=== PATIENT | female | born 1985 | race Caucasian/White ===

== ENCOUNTER 2017-01-30 12:52 | Emergency (ER) | payer OTHER ==
[2017-01-30] MEDS ORDERED: diphenhydrAMINE 50 MG/ML VIAL ONE (13:14)
[2017-01-30] MEDS ORDERED: Metoclopramide HCl 10 MG/2 ML VIAL ONE (13:14)
[2017-01-30 13:21] LABS: #Basophils 0.1 thou/uL (0.0-0.2); #Eosinphils 0.1 thou/uL (0.0-0.7); #Monocytes 0.5 thou/uL (0.11-0.59); %Basophils 0.9 % (0.0-1.0); %Eosinophils 0.8 % (0.0-10.0); %Lymphocytes 18.7 % (21.0-51.0); %Monocytes 4.7 % (0.0-10.0); Mean Platelet Volume 7.6 fL (7.4-10.4); Red Blood Cell (RBC) Count 4.32 mill/uL (4.20-5.40); White Blood Cell (WBC) Count 10.7 thou/uL (4.8-10.8)
[2017-01-30 13:39] LABS: ALT (SGPT) 16 U/L (8-55); AST (SGOT) 16 U/L (5-34); Alkaline Phosphatase 65 U/L (40-150); Anion Gap 14 mmol/L (10-20); BUN (Urea Nitrogen) 6 mg/dL (7.0-18.7); Bilirubin, Total 0.6 mg/dL (0.2-1.2); Calc. Creatinine Clearance 0 mL/min (70-130); Carbon Dioxide 22 mmol/L (22-29); Chloride 101 mmol/L (98-107); Estimated GFR-MDRD Greater than 90; Globulin 3.9 g/dL (2.4-3.5); Protein, Total 7.8 g/dL (6.0-8.3)
[2017-01-30 15:03] LABS: Bilirubin Negative (Negative); Blood, Urine Negative (Negative); Glucose, Urine (Dipstick) Negative (Negative); Ketone, Urine 15 mg/dL (Negative); Nitrite Negative (Negative); Protein, Urine (Dipstick) Negative (Neg-Trace)
== END 2017-01-30 15:05 | disposition home or self-care (01) ==
LOC: ERS 12:52
DX: O99.351 Diseases of the nervous system complicating pregnancy, first trimester (principal); G43.909 Migraine, unspecified, not intractable, without status migrainosus; O99.341 Other mental disorders complicating pregnancy, first trimester; F41.9 Anxiety disorder, unspecified; Z3A.13 13 weeks gestation of pregnancy
CPT/HCPCS: 80053; 81003; 85025; 96361; 96374; 96375; J1200; J2765

== ENCOUNTER 2017-06-24 17:42 | Day surgery (SDC) | payer BC ==
[2017-06-24 18:37] VITALS: BMI 38.6
--- NOTE | 2017-06-25 07:22 | PRG ---
DATE OF SERVICE: 06/24/2017 OB ER ENCOUNTER PRIMARY WEATHER STRIP INSTALLER: Dr. Madonna Ferrara. CHIEF COMPLAINT: Decreased movement. HISTORY OF PRESENT ILLNESS: The patient is a 31-year-old G3, P1 female with an intrauterine pregnanc y at 33 weeks and 5 days who presented to Labor and Delivery with concerns of decreased movemen t x1 day. The patient denies any recent illness, fever, fall, headache, chest pain, shortness of jonathan ath, nausea, vomiting, diarrhea, constipation. She denies vaginal bleeding, leakage of fluid, urinar y problems. The patient reports she recently was diagnosed with a vaginal infection and has been usi ng Monistat recently. PAST MEDICAL HISTORY: Negative. PAST SURGICAL HISTORY: Noncontributory. ALLERGIES: No known drug allergies. MEDICATIONS: vitamins. OB LABS: Unavailable at the time of dictation. PHYSICAL EXAMINATION: VITAL SIGNS: Blood pressure 136/79, heart rate 75, satting 99% on room air, respiratory rate of 20, temperature 98.6. GENERAL: She appears to be in no acute distress. She is alert and oriented, cooperative and pleasan t to interact with. HEAD: Normocephalic, atraumatic. LUNGS: Clear to auscultation bilaterally. HEART: Regular rate and rhythm. ABDOMEN: Soft, gravid, nontender to palpation. EXTREMITIES: Nontender with bilateral edema in the lower extremities. The patient reports it resolv es at night after work. : Exam has been deferred. heart tracing performed for decreased movement demonstrates a baseline in the 130s with m oderate long-term variability, positive accelerations, no decelerations. Patient does show contracti ons on the monitor, but not felt by her about every 4-5 minutes with irritability in between. ASSESSMENT AND PLAN: The patient is a 31-year-old female with an intrauterine at 33 weeks and 5 days, followed by Dr. Ferrara who presents for decreased movement. The patient demo nstrates a fetus with a reactive NST and reassuring heart tracing. The patient does show contr actions on the monitor; however, the patient does not feel them. The patient recently was diagnosed with a vaginal infection and was given instructions to take Monistat over the counter which she recen tly has begun. Patient has been given reassurance and has been discharged home with labor pr ecautions.
== END 2017-06-24 20:00 | disposition home or self-care (01) ==
LOC: L&D/OP 17:42
PROVIDERS: ATTEND Obstetrics & Gynecology
DX: O36.8130 Decreased fetal movements, third trimester, not applicable or unspecified (principal); Z3A.33 33 weeks gestation of pregnancy; Z79.899 Other long term (current) drug therapy
CPT/HCPCS: 99282

== ENCOUNTER 2017-07-09 08:37 | Inpatient (IN) | payer BC ==
[2017-07-09] MEDS ORDERED: Calcium Gluc 4.6 MEQ/10 ML (100 MG/ML) SLOW IVP PRN (09:20)
[2017-07-09] MEDS ORDERED: Promethazine HCl 25 MG/ML VIAL IM PRN ×2 (09:20→18:40)
--- NOTE | 2017-07-09 09:27 | PDOC.LDHP ---
Labor and Delivery H&P Chief complaint: other (Bilateral lower leg swelling) HPI: This patient presents to L&D as a 31 yo Sab1 at 35 weeks and 5 days with a complaint of lower leg swelling (both legs). She denies HAs or vision changes or RUQ pain. Good FM. She does not have a HX of PIH or CHTN. She sees Dr Jimenez in the office. Review of Systems: complete ROS performed and negative as per HPI Family HX noncontributory Current gestational age (weeks): 35 (5 days) Due date: 08/07/17 Dating criteria: last menstrual period Grav: 3 Para: 1 OB History Details: X 1 in past Current complications: none Abnormal US findings: No Current medications: pre- vitamins Previous surgical history: none Allergies/Adverse Reactions: Allergies Allergy/AdvReac Type Severity Reaction Status Date / Time No Known Allergies Allergy Unverified 06/24/17 18:28 Social history: none - Physical Exam Abnormal vital signs: BP 179/80s, 180/90s General: NAD Heart: RRR Lungs: CTAB Abdomen: gravid FHT: category 1 [place] contractions every: uterine irritability - Assessment L&D Assessment: medically indicated induction 35 weeks severe BP elevation (severe preeclampsia based on BP criteria) - Plan Plan: admit to L&D, GBS antibiotic prophylaxis, informed consent obtained, other (Plan: 1. Serial BPs 2. Severe Precelampsia based on BPs 3. Recommend induction as EGA greater than 34 weeks with severe pressures 4. GBS prophylaxis as EGA under 37 weeks 5. MgSo4 in labor 6. CX check after patient back from restroom 7. Antihypertensives prn for BPs >160/110 8. Sono for EFW 9. Dr Rivera and I have reviewed the patient's case.)
[2017-07-09] MEDS ORDERED: Magnesium Sulfate 20 GM/WATER 500 ML BAG IVPB SCH (09:30)
[2017-07-09] MEDS: Lactated Ringer's 1,000 ML IV SCH ×2 (09:30→18:25)
[2017-07-09] MEDS: Betamet Acet/Betamet Na Ph 30 MG/5 ML VIAL IM SCH ×2 (09:30→21:50)
[2017-07-09] MEDS ORDERED: HYDROcodone/Acetaminophen 5/325 mg Tablet PO PRN ×2 (09:31)
[2017-07-09] MEDS ORDERED: Betamet Acet/Betamet Na Ph 30 MG/5 ML VIAL ONE (09:31)
[2017-07-09] MEDS ORDERED: Ibuprofen 800 MG TAB PO PRN (09:31)
[2017-07-09] MEDS ORDERED: Penicillin G Potassium 5 MILL.UNITS in Sodium Chloride 0.9% 100 ML IVPB SCH (09:45)
--- NOTE | 2017-07-09 09:50 | PDOC.EVN ---
Event Note - Event Note Event Note: Sono being done now at bedside by tech.
--- NOTE | 2017-07-09 09:56 | PDOC.EVN ---
Event Note - Event Note Event Note: Sono= cephalic, EFW 3146 grams, PEDRO LUIS 7, anterior placenta. BPs still 180/90s, will order nifedipine.
[2017-07-09] MEDS ORDERED: NIFEdipine 10 MG CAP PO SCH (10:15)
[2017-07-09 10:19] LABS: #Basophils 0.1 thou/uL (0.0-0.2); #Eosinphils 0.1 thou/uL (0.0-0.7); #Lymphocytes 2.2 thou/uL (1.20-3.40); #Monocytes 1.1 thou/uL (0.11-0.59); %Basophils 0.9 % (0.0-1.0); %Eosinophils 0.9 % (0.0-10.0); %Lymphocytes 18.8 % (21.0-51.0); %Monocytes 9.8 % (0.0-10.0); %Neutrophils 69.6 % (42.0-75.0); Hemoglobin 11.4 g/dL (12.0-16.0); Mean Corpuscular HGB CONC 35.2 g/dL (32.0-36.0); Mean Corpuscular Hemoglobin 31.9 pg (27.0-31.0); Mean Corpuscular Volume 90.6 fl (81.0-99.0); Mean Platelet Volume 11.4 fL (7.4-10.4); Platelet Count 168 thou/uL (130-400); RBC Distribution Width 12.7 % (11.5-14.5); Red Blood Cell (RBC) Count 3.59 mill/uL (4.20-5.40); White Blood Cell (WBC) Count 11.4 thou/uL (4.8-10.8)
[2017-07-09] MEDS ORDERED: Penicillin G Potassium 5 MILL.UNITS VIAL ONE (10:22)
--- NOTE | 2017-07-09 10:29 | PDOC.EVN ---
Event Note - Event Note Event Note: CX was /-1, cytotec ordered PV
[2017-07-09] MEDS: Misoprostol 100 MCG TAB VAG SCH ×3 (10:41→22:50)
[2017-07-09 10:42] LABS: ALT (SGPT) 25 U/L (8-55); AST (SGOT) 25 U/L (5-34); Alkaline Phosphatase 166 U/L (40-150); Anion Gap 12 mmol/L (10-20); BUN (Urea Nitrogen) 8 mg/dL (7.0-18.7); Bilirubin, Total 0.3 mg/dL (0.2-1.2); Calc. Creatinine Clearance 0 mL/min (70-130); Calcium 8.9 mg/dL (7.8-10.44); Carbon Dioxide 23 mmol/L (22-29); Chloride 107 mmol/L (98-107); Estimated GFR-MDRD Greater than 90; Globulin 2.9 g/dL (2.4-3.5); Glucose 85 mg/dL (70-105); Potassium 3.9 mmol/L (3.5-5.1); Protein, Total 5.9 g/dL (6.0-8.3); Sodium 138 mmol/L (136-145)
[2017-07-09 10:59] LABS: Syphilis Antibody Nonreactive (Nonreactive); Syphilis Antibody Index 0.04 S/CO (<1.00 Non-Reactive)
[2017-07-09] MEDS: Magnesium Sulfate 20 gm/500 ml 20 GM/500 ML BAG IVPB SCH ×2 (11:03→18:32)
[2017-07-09 11:36] LABS: HBSAg Index 0.23 S/CO (0-0.99); HIV (1/2) Antibody/Antigen Non-Reactive (NonReactive); HIV 1/2 INDEX 0.07 S/CO (<1.00); Hep B Surf Ag Non-Reactive S/CO (NonReactive)
--- NOTE | 2017-07-09 11:52 | ULT ---
COMPLETE OB ULTRASOUND GREATER THAN 14 WEEKS: HISTORY: A 31-year-old female with a history of preeclampsia and labor. FINDINGS: A single viable intrauterine fetus is noted in cephalic presentation. The placenta appears to be ant erior. heart rate is 150 b.p.m. Cervical length is poorly seen but appears to be foreshortene d and approximately 1.6 cm. Amniotic fluid appears to be somewhat low with an PEDRO LUIS of 7.0 cm. ANATOMY: Limited anatomy demonstrates a 4-chamber heart, 3-vessel cord, stomach, bladder, kidney regions . Spine and extremities and portions of the brain were inaccurately seen. There is a small amount o f bilateral hydroceles in the fetus. BIOMETRY: BPD 9.0 cm-36 weeks 4 days Head circumference 33.1 cm-37 weeks 5 days Abdominal circumference 33.4 cm-37 weeks 2 days Femur length 7.3 cm-37 weeks 1 day IMPRESSION: A single viable intrauterine fetus at 37 weeks 1 day with an estimated date of confinement of 07/29/17 by ultrasound. Estimated weight is 3146 gm at 85th percentile. Incomplete anatomy eval uation. Somewhat low with amniotic fluid index of 7. Incomplete anatomy evaluation. POS: [facility]
[2017-07-09] MEDS ORDERED: Labetalol HCl 100 MG/20 ML VIAL SLOW IVP PRN (12:29)
--- NOTE | 2017-07-09 12:51 | PDOC.EVN ---
Event Note - Event Note Event Note: Lab check: CBC and CMP ok. UProtein/Cr ratio = 3
[2017-07-09] MEDS: LR 500 ML/Oxytocin 10 units 500 ML IV SCH (14:02)
[2017-07-09] MEDS: Penicillin G 2.5 MILL.units 2.5 MILL.UNITS in Premix Bag 1 BAG IVPB SCH ×3 (14:02→22:30)
[2017-07-09] MEDS ORDERED: DISCONTINUE ALL PREVIOUS NARCOTICS FS SCH (16:45)
[2017-07-09] MEDS: Bupivacaine 0.5% 20 ML, fentaNYL Citrate/PF 400 MCG in Sodium Chloride 0.9% 72 ML EPIDURAL SCH (18:21)
[2017-07-09] MEDS ORDERED: Acetaminophen 325 MG TAB PO PRN (18:40)
[2017-07-09] MEDS ORDERED: Lactated Ringer's 500 ML IV PRN (18:40)
[2017-07-09] MEDS ORDERED: ePHEDrine/0.9% NaCl/PF SYRINGE 50 mg/10 ml SLOW IVP PRN (18:40)
[2017-07-09] MEDS ORDERED: Ondansetron HCl/PF 4 MG/2 ML Vial IVP PRN (18:40)
[2017-07-09] MEDS ORDERED: Naloxone HCl 0.4 mg/ml Vial IVP PRN ×2 (18:40)
[2017-07-09] MEDS ORDERED: diphenhydrAMINE 50 MG/ML VIAL IVP PRN (18:40)
[2017-07-09] MEDS ORDERED: Eucerin (Mineral Oil/Petrolatum,White) 30 gm Jar TOP PRN (18:40)
[2017-07-09] MEDS ORDERED: Fentanyl 4mcg/Marcaine 0.1% Cassette 100 ML EPIDURAL SCH (18:45)
[2017-07-09] MEDS ORDERED: Communication Order-Pharmacy FS SCH (18:45)
--- NOTE | 2017-07-09 19:41 | PDOC.LDPN ---
Labor & Delivery Progress Note - Objective Vital signs reviewed and normal: yes Abnormal vital signs: BPs currently mild range General: NAD Uterine fundus: non tender Dilation: 3 Effacement: 50% Station: -2 FHT: category 1 (130s, mod hannah, +accels, no decels ) [place] contractions every: q1-4 min Other exam findings: 3+ pitting edema, Neg clonus, DTRs 2+ - Assessment (1) 35 weeks gestation of Code(s): Z3A.35 - 35 WEEKS GESTATION OF Current Visit: Yes Status : Acute (2) Severe pre-eclampsia Code(s): O14.10 - SEVERE PRE-ECLAMPSIA, UNSPECIFIED TRIMESTER Current Visit: Yes Status: Acute -: Continue magnesium for seizure PPX BMTZ course due to prematurity Continue pitocin for IOL Monitor BPs, currently improved with mag and 1 dose of procardia UOP good Check out given to Dr. Castaneda for remainder of care.
--- NOTE | 2017-07-09 19:55 | PDOC.EVN ---
Event Note - Event Note Event Note: Case D/W Dr Jimenez...I will assume care for overnight.
--- NOTE | 2017-07-09 21:50 | PDOC.EVN ---
Event Note - Event Note Event Note: L&D Check: cx 3cm, pitocin in use. Vitals seen. Strip reviewed.
--- NOTE | 2017-07-09 22:25 | PDOC.EVN ---
Event Note - Event Note Event Note: @2310: Will hold pit for 1 hour to prevent pit receptor downregulation. cervix still 3 cm
[2017-07-10] MEDS: Bupivacaine 0.5% 20 ML, fentaNYL Citrate/PF 400 MCG in Sodium Chloride 0.9% 72 ML EPIDURAL SCH ×2 (01:32→09:15)
[2017-07-10] MEDS: Penicillin G 2.5 MILL.units 2.5 MILL.UNITS in Premix Bag 1 BAG IVPB SCH ×4 (02:30→15:59)
[2017-07-10] MEDS: Misoprostol 100 MCG TAB VAG SCH ×4 (03:07→17:38)
[2017-07-10] MEDS: Magnesium Sulfate 20 gm/500 ml 20 GM/500 ML BAG IVPB SCH (04:08)
[2017-07-10] MEDS: LR 500 ML/Oxytocin 10 units 500 ML IV SCH (06:29)
--- NOTE | 2017-07-10 08:06 | PDOC.EVN ---
Event Note - Event Note Event Note: AROM Note: AROM at 0803 Patient resting with epidural. Cervix is 4/50/-1. AROM= copious clear fluid. FHTs Cat 1. IUPC placed. Report given to Dr Dailey.
[2017-07-10] MEDS ORDERED: LR / Pitocin 40 units/1000 ml 1,000 ML ONE (11:29)
[2017-07-10] MEDS ORDERED: Misoprostol 200 MCG TAB ONE (12:27)
[2017-07-10] MEDS ORDERED: Carboprost 250 MCG/ML AMP ONE ×2 (12:27→16:02)
[2017-07-10] MEDS ORDERED: Bicitra 30 ML UDCUP ONE (12:51)
[2017-07-10] MEDS: LR / Pitocin 40 units/1000 ml 1,000 ML IV SCH (14:10)
[2017-07-10 14:30] LABS: Actual Bicarbonate (HCO3a) 22.2 mEq/L (22-26); Actual Bicarbonate (HCO3v) 21 mEq/L (22-26); Analyzer IN Cardio OR; Base Excess -4.6 mEq/L (0 (+/- 2.5)); Base Excess (BEa) -4.5 mEq/L (0 (+/-) 2.5)
[2017-07-10] MEDS ORDERED: Ondansetron HCl/PF 4 MG/2 ML Vial IVP PRN (14:30)
[2017-07-10] MEDS ORDERED: Milk Of Magnesia 30 ML UDCUP PO PRN (14:30)
[2017-07-10] MEDS ORDERED: traMADol HCl 50 MG TAB PO PRN (14:30)
[2017-07-10] MEDS ORDERED: Benzocaine/Menthol 20-0.5% 60 ML CAN TOP PRN (14:30)
[2017-07-10] MEDS ORDERED: Bisacodyl 10 MG SUPP PR PRN (14:30)
[2017-07-10] MEDS ORDERED: Misoprostol 200 MCG TAB VAG SCH (14:30)
[2017-07-10] MEDS ORDERED: Diphenoxylate HCl/Atropine Tablet PO SCH (14:30)
--- NOTE | 2017-07-10 14:36 | PDOC.OPDEL ---
OB Operative/Delivery Note Delivery Dr/Surgeon: Madonna Ferrara DO Pre-Delivery Diagnosis: medically indicated induction (35 week IUP, severe pre- eclampsia) Procedure/Post Delivery Dx: spontaneous vaginal delivery Weeks gestation: 35 Anesthesia: epidural - Findings A Sex: male - 1 min: 4 - 5 min: 5 ( 9 @ 10 min ) - Additional Findings/Plan Placenta delivered: spontaneous Repaired Obstetrical Laceration: episiotomy (midline - 2nd degree) Estimated blood loss: 350 cc Compilations/Other Findings: in DARCY position Nuchal x1 Hemabate and cytotec given due to increased bleeding initially after delivery. Post delivery plan: routine recovery
[2017-07-10] MEDS ORDERED: Ondansetron HCl/PF 4 MG/2 ML Vial ONE (14:41)
[2017-07-10 15:51] LABS: Hemoglobin 12.4 g/dL (12.0-16.0); Mean Corpuscular HGB CONC 33.8 g/dL (32.0-36.0); Mean Corpuscular Volume 91.8 fl (81.0-99.0); Mean Platelet Volume 10.5 fL (7.4-10.4); Platelet Count 189 thou/uL (130-400); Red Blood Cell (RBC) Count 3.98 mill/uL (4.20-5.40); White Blood Cell (WBC) Count 23.3 thou/uL (4.8-10.8)
[2017-07-10 16:05] LABS: Band 4 % (5-11); Lymphocytes 4 % (21-51); MDiff Complete? YES; Monocytes 8 % (0-10); Neutrophil 82 % (42-75); PLT Morphology Comment Appears Adequate; Polychromasia SLIGHT = 2-3 cells (100X) (0-2/hpf); Reactive Lymphocytes 1 % (0-10)
[2017-07-10] MEDS: Lactated Ringer's 1,000 ML IV SCH ×2 (16:07→16:08)
[2017-07-10 16:12] LABS: ALT (SGPT) 50 U/L (8-55); AST (SGOT) 55 U/L (5-34); Albumin 2.9 g/dL (3.5-5.0); Alkaline Phosphatase 164 U/L (40-150); Anion Gap 16 mmol/L (10-20); BUN (Urea Nitrogen) 11 mg/dL (7.0-18.7); Bilirubin, Total 0.5 mg/dL (0.2-1.2); Calc. Creatinine Clearance 0 mL/min (70-130); Calcium 7.6 mg/dL (7.8-10.44); Carbon Dioxide 18 mmol/L (22-29); Chloride 103 mmol/L (98-107); Estimated GFR-MDRD 89; Globulin 2.9 g/dL (2.4-3.5); Glucose 109 mg/dL (70-105); Magnesium 5.8 mg/dL (1.6-2.6); Protein, Total 5.8 g/dL (6.0-8.3); Sodium 133 mmol/L (136-145)
[2017-07-11 07:09] LABS: Hemoglobin 10.6 g/dL (12.0-16.0); Mean Corpuscular HGB CONC 34.1 g/dL (32.0-36.0); Mean Corpuscular Hemoglobin 31.7 pg (27.0-31.0); Mean Corpuscular Volume 92.8 fl (81.0-99.0); Mean Platelet Volume 10.4 fL (7.4-10.4); Platelet Count 165 thou/uL (130-400); RBC Distribution Width 12.9 % (11.5-14.5); Red Blood Cell (RBC) Count 3.35 mill/uL (4.20-5.40); White Blood Cell (WBC) Count 16.2 thou/uL (4.8-10.8)
[2017-07-11] MEDS: Docusate Calcium (SURFAK) 240 MG CAP PO SCH ×3 (09:43→21:33)
[2017-07-11] MEDS: Ibuprofen 800 MG TAB PO SCH ×4 (09:44→21:33)
[2017-07-11] MEDS: Ferrous Sulfate 325 MG TAB PO SCH ×3 (09:44→17:49)
[2017-07-11] MEDS: Prenatal Vitamin 1 TAB PO SCH (09:44)
[2017-07-11] MEDS: Lactated Ringer's 1,000 ML IV SCH ×2 (09:45→14:53)
[2017-07-11] MEDS: Magnesium Sulfate 20 gm/500 ml 20 GM/500 ML BAG IVPB SCH (09:46)
[2017-07-11 10:25] VITALS: BMI 38.6
--- NOTE | 2017-07-11 11:28 | PRG ---
DATE OF SERVICE: 07/11/2017 SUBJECTIVE: The patient is resting comfortably. She is now approximately 18 hours status post vagin al delivery with severe pre-eclampsia. She denies headache, blurred vision or scotoma. OBJECTIVE: VITAL SIGNS: Blood pressure is 150/75, temperature 98.7, respirations 18, pulse 85. GENITOURINARY: Urine output has been greater than 30 mL an hour throughout. EXTREMITIES: DTRs are 1+. LUNGS: Clear to auscultation bilaterally. HEART: Regular rhythm. ABDOMEN: Soft, nontender. She has normal lochia. EXTREMITIES: Without clubbing, cyanosis or edema. LABORATORY DATA: Hematocrit is 31%, normal platelet count. No magnesium levels drawn. IMPRESSION: Doing well LICU status post with severe pre-eclampsia and magnesium sulfate prophyl axis. PLAN: Continue magnesium until noon, discontinued and transferred to floor. Watch blood pressures, if persistent 160 systolic and 100 diastolic are noted, we will institute oral antihypertensives.
--- NOTE | 2017-07-11 11:48 | PDOC.PP ---
Post Progress Note Post Day #: 1 Subjective: Doing well. MgSo4 to end at noon today, per Dr ojeda. No MACDONALD, no visual changes , no RUQ pain PO intake tolerated: yes Flatus: yes Ambulation: yes Vital Signs (12 hours) Temp Pulse Resp 07/11/17 08:44 98.4 F 90 18 Weight Weight 225 lb BPs wnl, and good urine output. Vitals in QS - Physical Examination General: NAD Cardiovascular: no m/r/g Respiratory: clear to auscultation bilaterally, non-labored breathing Abdominal: + bowel sounds, no distention Extremities: negative homans (B) Neurological: no gross focal deficits Psychiatric: A&Ox3, normal affect Result Diagrams: 07/11/17 06:59 07/10/17 15:38 Additional Labs: Post Labs Hep Bs Antigen Non-Reactive S/CO (NonReactive) 07/09/17 09:49 (1) state Code(s): Z39.2 - ENCOUNTER FOR ROUTINE FOLLOW-UP Status: Acute - Assessment/Plan Doing well. Ok for Mag stop and floor transfer.
[2017-07-11] MEDS: Misoprostol 100 MCG TAB VAG SCH (14:56)
[2017-07-12] MEDS: Lactated Ringer's 1,000 ML IV SCH ×2 (01:02→09:37)
[2017-07-12] MEDS: Ibuprofen 800 MG TAB PO SCH ×2 (04:52→14:11)
[2017-07-12 05:16] LABS: #Basophils 0.1 thou/uL (0.0-0.2); #Eosinphils 0.1 thou/uL (0.0-0.7); #Lymphocytes 3.1 thou/uL (1.20-3.40); #Monocytes 1.3 thou/uL (0.11-0.59); #Neutrophils 6.4 thou/uL (1.40-6.50); %Basophils 0.7 % (0.0-1.0); %Eosinophils 1.1 % (0.0-10.0); %Lymphocytes 28.2 % (21.0-51.0); %Monocytes 12.2 % (0.0-10.0); %Neutrophils 57.8 % (42.0-75.0); Hemoglobin 9.3 g/dL (12.0-16.0); Mean Corpuscular HGB CONC 33.5 g/dL (32.0-36.0); Mean Corpuscular Hemoglobin 31.4 pg (27.0-31.0); Mean Corpuscular Volume 93.9 fl (81.0-99.0); Mean Platelet Volume 10.2 fL (7.4-10.4); Platelet Count 171 thou/uL (130-400); RBC Distribution Width 12.7 % (11.5-14.5); Red Blood Cell (RBC) Count 2.97 mill/uL (4.20-5.40)
[2017-07-12 05:38] LABS: ALT (SGPT) 37 U/L (8-55); AST (SGOT) 30 U/L (5-34); Albumin 2.6 g/dL (3.5-5.0); Alkaline Phosphatase 105 U/L (40-150); Anion Gap 11 mmol/L (10-20); BUN (Urea Nitrogen) 13 mg/dL (7.0-18.7); Bilirubin, Total 0.3 mg/dL (0.2-1.2); Calc. Creatinine Clearance 202 mL/min (70-130); Calcium 8.1 mg/dL (7.8-10.44); Carbon Dioxide 28 mmol/L (22-29); Chloride 106 mmol/L (98-107); Estimated GFR-MDRD Greater than 90; Globulin 2.3 g/dL (2.4-3.5); Glucose 80 mg/dL (70-105); Potassium 4.5 mmol/L (3.5-5.1); Protein, Total 4.9 g/dL (6.0-8.3); Sodium 140 mmol/L (136-145)
[2017-07-12] MEDS: Prenatal Vitamin 1 TAB PO SCH (09:38)
[2017-07-12] MEDS: Docusate Calcium (SURFAK) 240 MG CAP PO SCH (09:38)
[2017-07-12] MEDS: Ferrous Sulfate 325 MG TAB PO SCH (09:38)
[2017-07-12 12:03] VITALS: TEMP 98.3
[2017-07-12 12:34] VITALS: BP 141/72
--- NOTE | 2017-07-12 13:04 | PDOC.PP ---
Post Progress Note Post Day #: 2 Subjective: Denies preE sx. Minimal lochia. Pumping, infant in NICU. Off mag > 24 hours. PO intake tolerated: yes Flatus: yes Ambulation: yes Vital Signs (12 hours) Temp Pulse Resp BP BP 07/12/17 12:33 85 18 141/72 H 07/12/17 12:00 98.3 F 85 18 162/80 H 07/12/17 08:00 99.6 F 78 16 07/12/17 07:37 99.6 F 78 16 133/79 07/12/17 01:50 99.2 F 81 16 134/71 Weight Weight 225 lb - Physical Examination General: NAD Cardiovascular: RRR Respiratory: non-labored breathing Abdominal: no distention, appropriately TTP Fundus firm & at: below umbilius Extremities: negative homans (B) Deviation from normal: 2-3+ edema Neurological: no gross focal deficits Psychiatric: A&Ox3 Result Diagrams: 07/12/17 04:46 07/12/17 04:46 Additional Labs: Post Labs Hep Bs Antigen Non-Reactive S/CO (NonReactive) 07/09/17 09:49 (1) 35 weeks gestation of Code(s): Z3A.35 - 35 WEEKS GESTATION OF Status: Resolved (2) Severe pre-eclampsia Code(s): O14.10 - SEVERE PRE-ECLAMPSIA, UNSPECIFIED TRIMESTER Status: Acute - Assessment/Plan PPD2 VSSAF. Mild range BPs, one severe range with repeat mild range. Off mag > 24 hours. Labs wnl. Mild anemia. Meeting requirements for d/c. D/C to B&B today. F/U 1 week for BP check. Reviewed si/sx of severe preE.
== END 2017-07-12 15:51 | disposition home or self-care (01) | DRG 775 ==
LOC: L&D/OP 08:37 → L&D 09:27 → 3SW 07-11 14:29
PROVIDERS: ADMIT Obstetrics & Gynecology; ATTEND Obstetrics & Gynecology
PROC: 10E0XZZ Delivery of Products of Conception, External Approach (ICD-10-PCS; principal; 2017-07-10)
PROC: 0W8NXZZ Division of Female Perineum, External Approach (ICD-10-PCS; 2017-07-10)
PROC: 10907ZC Drainage of Amniotic Fluid, Therapeutic from Products of Conception, Via Natural or Artificial Opening (ICD-10-PCS; 2017-07-10)
DX: O14.14 Severe pre-eclampsia complicating childbirth (principal); O69.81X0 Labor and delivery complicated by cord around neck, without compression, not applicable or unspecified; Z37.0 Single live birth; Z3A.35 35 weeks gestation of pregnancy
CPT/HCPCS: 36415; 51702; 76805; 80053; 82570; 82805; 83735; 84156; 85025; 85027; 86780; 87340; 87389; 99285; J0702; J2405; J2540; J2550; J3010; J3475; J3490; J7050; J7120